=== PATIENT | female | born 1965 | race Caucasian/White ===

== ENCOUNTER 2017-10-23 16:20 | Emergency (ER) | payer OTHER ==
[~2017-10-23] VITALS: Ht 167.6 cm; Wt 68.0 kg
[~2017-10-23 16:20] MED LIST: ALEVE220 M1; AMBIEN 5 MG TABL5 M1 PO; AMERGE1 MG PO; APAP650 PO; ASPIRIN EC81 M1 PO; AUGMENTIN 875875 M1 PO; CLONAZEPAM PO; COLACE100 MG PO; DIFLUCAN150 MG PO; FLEXERIL PO; FLUOXETINE HCL40 MG PO; HYDROCODON-ACE1 EAC7 PO; NEURONTIN 300300 M1; NORCO 5-325 TA1 EACH PO; PERCOCET 5-3251 EACH PO; PHENERGAN 25 MG25 M1 PO; PRILOSEC40 MG PO; PROZAC 20 MG20 M1 PO; PROZAC 20 MG20 MG; SIMVASTATIN20 MG PO; TOPAMAX100 MG PO; TRANSDERM-SCO1 PATC1 TRANSDERM; VITAMIN D 5050000 I1 PO; XANAX 0.5 MG0.5 M1 PO; ZOFRAN ODT4 MG PO; ZOFRAN8 MG PO
[2017-10-23] MEDS ORDERED: LISINOPRIL20 MG PO (16:52)
[2017-10-23] MEDS ORDERED: LIPITOR10 MG PO (16:53)
[2017-10-23] MEDS ORDERED: SINGULAIR 10 MG10 M1 PO (16:53)
[2017-10-23] MEDS ORDERED: AMERGE1 MG PO (16:53)
[2017-10-23] MEDS ORDERED: VALIUM5 MG PO (16:54)
[2017-10-23] MEDS ORDERED: ADDERALL 20 MG20 MG PO (16:54)
[2017-10-23 17:02] LABS: ABSOLUTE NEUTROPHILS 3.4 thou/uL (1.4-8.2); BASOPHILS 0.5 % (0.0-2.0); EOSINOPHILS 2.4 % (0.0-3.0); HEMATOCRIT 38.4 % (37.0-47.0); HEMOGLOBIN 12.9 gm/dL (12.0-15.0); MCH 29.7 pg (26.0-34.0); MCHC 33.6 g/dL (28.0-37.0); MCV 88.4 fL (80.0-100.0); MONOCYTES 9.5 % (1.0-8.0); PLATELET COUNT 272 thou/uL (150-400); POLYS 51.6 % (36.0-66.0); RBC 4.35 mil/uL (4.20-5.00); RDW 13.4 % (10.5-14.5); WBC 6.7 thou/uL (4.0-11.0)
[2017-10-23 17:02] LABS: URINE BILIRUBIN NEGATIVE (Negative); URINE BLOOD NEGATIVE (Negative); URINE CLARITY CLEAR; URINE COLOR YELLOW; URINE GLUCOSE-RANDOM* NEGATIVE (Negative); URINE KETONES NEGATIVE (Negative); URINE LEUKOCYTES TRACE (Negative); URINE NITRITE NEGATIVE (Negative); URINE PROTEIN (DIPSTICK) NEGATIVE (Negative); URINE UROBILINOGEN 0.2 E.U./dl (0.2-1.0)
[2017-10-23 17:09] LABS: CALCIUM 9.2 mg/dL (8.5-10.1); CREATININE 0.9 mg/dL (0.6-1.0); POTASSIUM 3.4 mmol/L (3.5-5.1)
[2017-10-23] MEDS ORDERED: NORCO 5-325 TA1 EACH PO (17:16)
[2017-10-23 17:32] LABS: ALBUMIN 3.9 g/dL (3.4-5.0); DIRECT BILIRUBIN 0.1 mg/dL (<0.1-0.3); TOTAL BILIRUBIN 0.7 mg/dL (<0.1-1.0); TOTAL PROTEIN 7.3 g/dL (6.4-8.2)
[2017-10-23 18:00] VITALS: BP 117/50
== END 2017-10-23 18:10 | disposition home or self-care (01) ==
LOC: ER 16:20
PROVIDERS: Emergency Medicine
DX: M54.5 Low back pain (principal); E78.00 Pure hypercholesterolemia, unspecified; G43.909 Migraine, unspecified, not intractable, without status migrainosus; Z90.710 Acquired absence of both cervix and uterus; Z88.1 Allergy status to other antibiotic agents; Z88.8 Allergy status to other drugs, medicaments and biological substances

== ENCOUNTER 2020-08-07 05:08 | Emergency (ER) | payer OTHER ==
[~2020-08-07] VITALS: Ht 165.1 cm; Wt 88.5 kg
[~2020-08-07 05:08] MED LIST changes: +ADDERALL 20 MG20 MG PO; +LIPITOR10 MG PO; +LISINOPRIL20 MG PO; +SINGULAIR 10 MG10 M1 PO; +VALIUM5 MG PO
[2020-08-07 05:50] LABS: HEMATOCRIT 37.9 % (37.0-47.0); HEMOGLOBIN 12.8 gm/dL (12.0-15.0); MCH 29.1 pg (26.0-34.0); MCHC 33.6 g/dL (28.0-37.0); MCV 86.6 fL (80.0-100.0); RBC 4.38 mil/uL (4.20-5.00); RDW 13.6 % (10.5-14.5); WBC 5.9 thou/uL (4.0-11.0)
[2020-08-07] MEDS ORDERED: FLUOXETINE HCL40 MG PO (06:00)
[2020-08-07] MEDS ORDERED: TOPAMAX100 MG PO (06:01)
[2020-08-07] MEDS ORDERED: ZESTRIL20 MG PO (06:01)
[2020-08-07] MEDS ORDERED: CRESTOR20 MG PO (06:01)
[2020-08-07] MEDS ORDERED: SINGULAIR 10 MG10 MG PO (06:01)
[2020-08-07] MEDS ORDERED: ADDERALL 20 MG20 MG PO (06:01)
[2020-08-07] MEDS ORDERED: OMEPRAZOLE40 MG PO (06:03)
[2020-08-07 06:04] LABS: ANION GAP 9 mmol/L (7-16); BUN 9 mg/dL (7-18); CALCIUM 8.8 mg/dL (8.5-10.1); CHLORIDE 107 mmol/L (98-107); CO2 24 mmol/L (21-32); CREATININE 0.9 mg/dL (0.6-1.0); GLUCOSE 150 mg/dL (74-106); POTASSIUM 3.6 mmol/L (3.5-5.1); SODIUM 140 mmol/L (136-145)
[2020-08-07] MEDS ORDERED: AMBIEN 10 MG TA10 MG PO (06:04)
[2020-08-07] MEDS ORDERED: AMERGE2.5 MG PO (06:04)
[2020-08-07] MEDS ORDERED: MECLIZINE HCL12.5 MG PO (06:04)
[2020-08-07 06:14] LABS: ALBUMIN 3.6 g/dL (3.4-5.0); DIRECT BILIRUBIN 0.2 mg/dL (<0.1-0.2); LIPASE 101 U/L (73-393); MAGNESIUM 2.2 mg/dL (1.8-2.4); SGOT 41 U/L (15-37); SGPT 45 U/L (30-65); TOTAL BILIRUBIN 0.8 mg/dL (0.2-1.0); TOTAL PROTEIN 7.2 g/dL (6.4-8.2); TROPONIN-I <0.06 ng/mL (<0.06)
[2020-08-07 06:15] LABS: APTT 26.2 Seconds (24.5-32.8)
[2020-08-07 07:18] LABS: URINE BILIRUBIN NEGATIVE (Negative); URINE BLOOD NEGATIVE (Negative); URINE CLARITY CLEAR; URINE COLOR YELLOW; URINE GLUCOSE-RANDOM* NEGATIVE (Negative); URINE KETONES NEGATIVE (Negative); URINE NITRITE-REFLEX NEGATIVE (Negative); URINE PROTEIN (DIPSTICK) NEGATIVE (Negative); URINE SPECIFIC GRAVITY <= 1.005 (1.005-1.035); URINE UROBILINOGEN 0.2 E.U./dl (0.2-1.0)
[2020-08-07 07:20] LABS: URINE LEUKOCYTES-REFLEX 1+ (Negative)
[2020-08-07 07:31] LABS: BACTERIA-REFLEX 1-9 Few /HPF (None Seen); CASTS None Seen /LPF (None Seen); CRYSTALS None Seen /LPF (None Seen); SQUAMOUS 0-3 Few /LPF (0-3); URINE RBC None Seen /HPF (0-2); URINE WBC-REFLEX 0-5 Rare /HPF (0-5)
--- NOTE | 2020-08-07 07:38 | EKG ---
[facility] [place] [address] ELECTROCARDIOGRAM REPORT Name: CIARAN KISER Room #: REG [facility]#: [id number] Admission: 08/07/20 Attend Phys: Discharge: Date of : 63 Report #: [id number] THIS REPORT FOR: cc: Gerald Latif Alan Z. DO Santiago, Patrick MD [facility] ~ THIS REPORT FOR: //name// [facility] ED Test Date: 2020-08-07 Test Time: 05:14:03 Pat Name: CIARAN ADAM Department: Room: Gender: F [employer]: diaz : 1965 Requested By: Ruddy Wilson Order Number: [id number] MD: Ozzy Jalloh Measurements Intervals [place] Rate: 73 P: 2 GA: 151 QRS: 9 QRSD: 103 T: 30 QT: 422 QTc: 465 Interpretive Statements Sinus rhythm RSR' in V1 or V2, right VCD or RVH Borderline T abnormalities, anterior leads Baseline wander in lead(s) II,III,aVF Compared to ECG 12/10/2013 21:39:16 RSR' in V1 or V2 now present T-wave abnormality now present Electronically Signed On 08-07-2020 7:38:34 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
[2020-08-07] MEDS ORDERED: KEFLEX500 M1 PO (07:56)
[2020-08-07] MEDS ORDERED: ZOFRAN ODT4 MG PO (07:57)
[2020-08-07] MEDS ORDERED: MOBIC15 MG PO (07:57)
[2020-08-07 08:37] VITALS: BP 112/59
== END 2020-08-07 08:38 | disposition home or self-care (01) ==
LOC: ER 05:08
PROVIDERS: Emergency Medicine
DX: S39.012A Strain of muscle, fascia and tendon of lower back, initial encounter (principal); N39.0 Urinary tract infection, site not specified; R53.1 Weakness; R07.89 Other chest pain; I10 Essential (primary) hypertension; E78.00 Pure hypercholesterolemia, unspecified; K21.9 Gastro-esophageal reflux disease without esophagitis; R11.0 Nausea; G43.909 Migraine, unspecified, not intractable, without status migrainosus; Z90.89 Acquired absence of other organs; Z90.711 Acquired absence of uterus with remaining cervical stump; Z88.8 Allergy status to other drugs, medicaments and biological substances; Z88.1 Allergy status to other antibiotic agents; Z88.2 Allergy status to sulfonamides; Z79.899 Other long term (current) drug therapy; X58.XXXA Exposure to other specified factors, initial encounter; Y93.89 Activity, other specified; Y92.89 Other specified places as the place of occurrence of the external cause; Y99.8 Other external cause status

== ENCOUNTER → 2020-10-06 | Outpatient (CLI) | payer OTHER ==
[~2020-10-06] MED LIST changes: +AMBIEN 10 MG TA10 MG PO; +AMERGE2.5 MG PO; +CRESTOR20 MG PO; +KEFLEX500 M1 PO; +MECLIZINE HCL12.5 MG PO; +MOBIC15 MG PO; +OMEPRAZOLE40 MG PO; +SINGULAIR 10 MG10 MG PO; +ZESTRIL20 MG PO
== END ==
LOC: SJCVCIMAG 08-25 13:53
PROVIDERS: ATTEND Internal Medicine
DX: R00.0 Tachycardia, unspecified (principal); R07.89 Other chest pain; R00.2 Palpitations; R55 Syncope and collapse; J43.9 Emphysema, unspecified; E78.5 Hyperlipidemia, unspecified; F17.200 Nicotine dependence, unspecified, uncomplicated; Z79.82 Long term (current) use of aspirin

== ENCOUNTER 2021-02-19 16:25 | Emergency (ER) | payer OTHER ==
[~2021-02-19] VITALS: Ht 167.6 cm; Wt 88.5 kg
[2021-02-19 17:25] LABS: URINE BILIRUBIN NEGATIVE (Negative); URINE BLOOD TRACE (Negative); URINE COLOR YELLOW; URINE GLUCOSE-RANDOM* NEGATIVE (Negative); URINE KETONES NEGATIVE (Negative); URINE NITRITE-REFLEX NEGATIVE (Negative); URINE PROTEIN (DIPSTICK) NEGATIVE (Negative); URINE SPECIFIC GRAVITY 1.015 (1.005-1.035); URINE UROBILINOGEN 0.2 E.U./dl (0.2-1.0)
[2021-02-19 17:34] LABS: URINE LEUKOCYTES-REFLEX 3+ (Negative)
[2021-02-19 17:35] LABS: URINE CLARITY SL HAZY
[2021-02-19 17:38] LABS: BACTERIA-REFLEX >30 Many /HPF (None Seen); SQUAMOUS 4-10 Moderate /LPF (0-3); URINE RBC 1-2 Rare /HPF (NONE SEEN); URINE WBC-REFLEX >25 Many /HPF (0-5)
[2021-02-19 17:39] LABS: CASTS None Seen /LPF (None Seen); CRYSTALS None Seen /LPF (None Seen)
[2021-02-19 17:48] LABS: ABSOLUTE NEUTROPHILS 3.5 thou/uL (1.4-8.2); BASOPHILS 0.5 % (0.0-2.0); EOSINOPHILS 2.1 % (0.0-3.0); HEMATOCRIT 40.3 % (37.0-47.0); HEMOGLOBIN 13.7 gm/dL (12.0-15.0); LYMPHOCYTES 32.8 % (24.0-44.0); MCH 29.6 pg (26.0-34.0); MCHC 33.9 g/dL (28.0-37.0); MCV 87.2 fL (80.0-100.0); PLATELET COUNT 273 thou/uL (150-400); POLYS 54.6 % (36.0-66.0); RBC 4.62 mil/uL (4.20-5.00); RDW 13.7 % (10.5-14.5); WBC 6.3 thou/uL (4.0-11.0)
[2021-02-19 17:57] LABS: ANION GAP 12 mmol/L (7-16); BUN 10 mg/dL (7-18); CALCIUM 9.8 mg/dL (8.5-10.1); CHLORIDE 102 mmol/L (98-107); CO2 25 mmol/L (21-32); CREATININE 0.9 mg/dL (0.6-1.0); GLUCOSE 166 mg/dL (74-106); POTASSIUM 3.3 mmol/L (3.5-5.1); SODIUM 139 mmol/L (136-145)
[2021-02-19 18:07] LABS: ALBUMIN 4.1 g/dL (3.4-5.0); AMYLASE 36 U/L (25-115); DIRECT BILIRUBIN 0.2 mg/dL (<0.1-0.2); LIPASE 104 U/L (73-393); MAGNESIUM 2.2 mg/dL (1.8-2.4); PHOSPHORUS 3.9 mg/dL (2.6-4.7); SGOT 76 U/L (15-37); SGPT 95 U/L (14-59); TOTAL BILIRUBIN 1.1 mg/dL (0.2-1.0); TROPONIN-I <0.06 ng/mL (<0.06)
[2021-02-19] MEDS ORDERED: ZOFRAN ODT4 MG PO (19:07)
[2021-02-19] MEDS ORDERED: PYRIDIUM200 MG PO (19:07)
[2021-02-19] MEDS ORDERED: DIFLUCAN150 MG PO (19:07)
[2021-02-19] MEDS ORDERED: BENTYL 10 MG CA10 MG PO (19:07)
[2021-02-19] MEDS ORDERED: CIPROFLOXACIN500 M1 PO (19:07)
[2021-02-19 19:26] VITALS: BP 120/48
--- NOTE | 2021-02-20 08:20 | EKG ---
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 : 1965 Requested By: Austin Turpin Order Number: [id number] MD: Ozzy Jalloh Measurements Intervals [place] Rate: 78 P: 48 [place]: 176 QRS: -4 QRSD: 104 T: 22 QT: 434 QTc: 495 Interpretive Statements Sinus rhythm Low voltage, precordial leads RSR' in V1 or V2, right VCD or RVH Borderline prolonged QT interval Baseline wander in lead(s) II Compared to ECG 08/07/2020 05:14:03 Low QRS voltage now present T-wave abnormality no longer present Electronically Signed On 02-20-2021 8:20:39 CDT by Ozzy Jalloh [email or web address] <ELECTRONICALLY SIGNED> By: Ozzy Jlaloh MD, FAC 02/20/21819 09 09 Ozzy Jalloh MD, [facility] /EPI
== END 2021-02-19 19:32 | disposition home or self-care (01) ==
LOC: ER 16:25
PROVIDERS: Emergency Medicine
DX: N39.0 Urinary tract infection, site not specified (principal); N20.0 Calculus of kidney; R74.01 Elevation of levels of liver transaminase levels; K21.9 Gastro-esophageal reflux disease without esophagitis; G43.909 Migraine, unspecified, not intractable, without status migrainosus; I10 Essential (primary) hypertension; E78.00 Pure hypercholesterolemia, unspecified; Z98.890 Other specified postprocedural states; Z90.710 Acquired absence of both cervix and uterus; Z88.1 Allergy status to other antibiotic agents; Z88.2 Allergy status to sulfonamides; Z88.8 Allergy status to other drugs, medicaments and biological substances